=== PATIENT | female | born 1980 | race American Indian/Alaskan Native ===

== ENCOUNTER 2017-07-14 19:50 | Emergency (ER) | payer MEDICAID ==
[2017-07-14 20:11] VITALS: BP 127/79
--- NOTE | 2017-07-14 21:36 | EDM.PDOC ---
ED HPI GENERAL MEDICAL PROBLEM - General Chief Complaint: General Stated Complaint: TOOTHACHE/TOP FRONT Time Seen by Provider: 07/14/17 21:17 Source of Information: Reports: Patient History Limitations: Reports: No Limitations - History of Present Illness INITIAL COMMENTS - FREE TEXT/NARRATIVE: Increasing tooth pain over past 3 days. Seen by dentist today briefly, planning to see her back next week, possibly for tooth extraction. She is 36 weeks . having increased pain with cold air. Denies fever or chills. Lists allergies to penicillin, amoxicillin and clindamycin( causes GI upset) Duration: Day(s): (3) Quality: Reports: Stabbing, Throbbing Severity: Moderate Improves with: Reports: None Worsens with: Reports: Cold Therapy, Eating Associated Symptoms: Reports: No Other Symptoms Treatments PUBLIC [employer]ICY MEDIATOR: Reports: Acetaminophen Upper Tooth/Teeth Pain Score (Numeric/FACES): 10 - Related Data Allergies Allergy/AdvReac Type Severity Reaction Status Date / Time amoxicillin Allergy Cannot Verified 07/14/17 20:02 Remember clindamycin Allergy Difficulty Verified 07/14/17 20:02 Breathing Penicillins Allergy Cannot Verified 07/14/17 20:02 Remember Home Meds: Home Meds Metronidazole [IJD: metroNIDAZOLE] 500 mg PO BID 07/14/17 [History] Pnv51/Iron Fum/Fa/Om-3/Dha/Epa [ Multi + Dha Softgel] 1 tab PO DAILY 05/23 [History] Past Medical History HEENT History: Reports: Impaired Vision TEST MAN History: Reports: Musculoskeletal History: Reports: Fracture - Past Surgical History GI Surgical History: Reports: Other (See Below) Other GI Surgeries/Procedures: diaphramatic hernia when baby Female Surgical History: Reports: Section Social & Family History - Tobacco Use Smoking Status *Q: Never Smoker - Caffeine Use Caffeine Use: Reports: None - Recreational Drug Use Recreational Drug Use: No ED ROS GENERAL - Review of Systems Review Of Systems: See Below Constitutional: Denies: Fever, Chills HEENT: Reports: Dental Pain. Denies: Ear Pain, Eye Pain, Throat Pain Respiratory: Reports: No Symptoms Cardiovascular: Reports: No Symptoms Endocrine: Reports: No Symptoms GI/Abdominal: Reports: No Symptoms : Reports: Other ( at 36 weeks) ED EXAM, GENERAL - Physical Exam Exam: See Below Exam Limited By: No Limitations General Appearance: Alert, Mild Distress Ears: Normal External Exam Nose: Normal Inspection Throat/Mouth: Normal Lips, Other (upper front incisors broken off with some surrounding redness, no abscess) Head: Atraumatic Neck: Normal Inspection, Supple Respiratory/Chest: No Respiratory Distress Cardiovascular: Normal Peripheral Pulses, Regular Rate, Rhythm Course - Vital Signs Last Recorded V/S: Last Vital Signs Temp 36.3 C 07/14/17 20:11 Pulse 94 07/14/17 20:11 Resp 18 07/14/17 20:11 BP 127/79 07/14/17 20:11 Pulse Ox 99 07/14/17 20:11 - Re-Assessments/Exams Free Text/Narrative Re-Assessment/Exam: 07/14/17 21:38 36 week woman with increasing front tooth pain She has broken off incisors with some surrounding redness, no abscess Has dental appointment scheduled for next week Will discharge with keflex 500 mg qid for infection and norco for pain 07/14/17 21:39 Departure - Departure Time of Disposition: 21:40 Disposition: Home, Self-Care 01 Clinical Impression: Pain due to dental caries - Discharge Information Referrals: PCP,None [Primary Care Provider] - Additional Instructions: Be sure to follow-up with the dentist next week as planned Stick to a soft diet, avoid very cold or very hot foods
== END 2017-07-14 22:04 | disposition home or self-care (01) ==
LOC: JP.ED 19:50
DX: K02.9 Dental caries, unspecified (principal); Z88.1 Allergy status to other antibiotic agents; Z88.0 Allergy status to penicillin
CPT/HCPCS: 99284